=== PATIENT | male | born 1955 | race Caucasian/White ===

== ENCOUNTER 2022-03-29 09:06 | Emergency (ER) | payer BC, OTHER ==
[2022-03-29 09:13] VITALS: BP 125/89; PULSE 59; RESP 18; TEMP 97.5; BMI 25.1
[2022-03-29] MEDS ORDERED: ACETAMINOPHEN 500 MG TABLET (FP) PO ONE (09:23)
[2022-03-29] MEDS ORDERED: DIPHTH,PERTUSS(ACELL),TET 0.5 ML DISP.SYRIN IM ONE ×2 (09:30→09:32)
[2022-03-29] MEDS ORDERED: ACETAMINOPHEN 500 MG TABLET (FP) ONE (09:31)
== END 2022-03-29 10:49 | disposition home or self-care (01) ==
LOC: FER 09:06
PROC: 3E0234Z Introduction of Serum, Toxoid and Vaccine into Muscle, Percutaneous Approach (ICD-10-PCS; principal; 2022-03-29)
DX: S43.101A Unspecified dislocation of right acromioclavicular joint, initial encounter (principal); S09.90XA Unspecified injury of head, initial encounter; W01.0XXA Fall on same level from slipping, tripping and stumbling without subsequent striking against object, initial encounter
CPT/HCPCS: 70450-TC; 73030-TC-RT-FY; 90715; 99284-25